=== PATIENT | female | born 1965 | race American Indian/Alaskan Native ===

== ENCOUNTER 2019-04-01 22:33 | Emergency (ER) | payer OTHER ==
[2019-04-02] MEDS ORDERED: ZESTRIL PO ONE (01:51)
--- NOTE | 2019-04-02 01:55 | Emergency Department Report ---
ED General Adult HPI - General Chief complaint: High BP Stated complaint: HIGH BLOOD PRESSURE Time Seen by Provider: 04/02/19 01:44 Source: patient Mode of arrival: Ambulatory Limitations: No Limitations - History of Present Illness Initial comments: 58-year-old female with history of hypertension presents to ED with elevated blood pressure the last few days. Patient states that she ran out of in her lisinopril 4 months ago. Currently she does not have a PCP, so was unable to get it refilled. Patient reports dull headache over the last few days, so she decided to take her blood pressure and found it to be elevated with systolic in the 160s and 170s. Patient denies dizziness, chest pain, shortness of breath, blurred vision. -: days(s) (3) Location: head Quality: dull Consistency: intermittent Improves with: none Worsens with: none Associated Symptoms: denies: confusion, chest pain, fever/chills, nausea/vomiting, shortness of breath - Related Data Previous Rx's Medication Instructions Recorded Last Taken Type Lisinopril [Zestril TAB] 20 mg PO ONCE #30 tablet 04/02/19 Unknown Rx Allergies Allergy/AdvReac Type Severity Reaction Status Date / Time No Known Allergies Allergy Verified 04/01/19 22:37 ED Review of Systems ROS: Stated complaint: HIGH BLOOD PRESSURE Other details as noted in HPI Comment: All other systems reviewed and negative Constitutional: denies: chills, fever Respiratory: denies: shortness of breath Cardiovascular: denies: chest pain Gastrointestinal: denies: nausea, vomiting Neurological: headache. denies: weakness, numbness, vertigo ED Past Medical Hx - Past Medical History Previous Medical History?: Yes Hx Hypertension: Yes - Surgical History Past Surgical History?: Yes Additional Surgical History: heart stent - Social History Smoking Status: Never Smoker Substance Use Type: None - Medications Home Medications: Home Medications Medication Instructions Recorded Confirmed Last Taken Type Lisinopril [Zestril TAB] 20 mg PO ONCE #30 tablet 04/02/19 Unknown Rx ED Physical Exam - General Limitations: No Limitations General appearance: alert, in no apparent distress - Head Head exam: Present: atraumatic, normocephalic - Eye Eye exam: Present: normal appearance, PERRL, EOMI - ENT ENT exam: Present: mucous membranes moist - Neck Neck exam: Present: normal inspection - Respiratory Respiratory exam: Present: normal lung sounds bilaterally. Absent: respiratory distress - Cardiovascular Cardiovascular Exam: Present: regular rate, normal rhythm - GI/Abdominal GI/Abdominal exam: Present: soft. Absent: distended - Extremities Exam Extremities exam: Present: normal inspection - Neurological Exam Neurological exam: Present: alert, oriented X3, CN II-XII intact. Absent: motor sensory deficit - Psychiatric Psychiatric exam: Present: normal affect, normal mood - Skin Skin exam: Present: warm, dry, intact, normal color ED Course Vital Signs 04/01/19 04/01/19 04/02/19 23:05 23:08 01:18 Temperature 98.0 F 98.1 F Pulse Rate 68 68 67 Respiratory 20 20 14 Rate Blood Pressure 175/92 175/92 O2 Sat by Pulse 99 99 Oximetry 04/02/19 04/02/19 04/02/19 01:30 01:45 02:00 Temperature Pulse Rate 54 L 60 56 L Respiratory 15 17 13 Rate Blood Pressure 160/89 160/89 154/92 O2 Sat by Pulse 100 100 99 Oximetry ED Medical Decision Making - Medical Decision Making - elevated BP, out of meds - mild HUGHES, however, neuro exam is normal - pt appears nontoxic - lisinopril given here in ED, prescription also given - advised outpt f/u - Differential Diagnosis chronic HTN Critical care attestation.: If time is entered above; I have spent that time in minutes in the direct care of this critically ill patient, excluding procedure time. ED Disposition Clinical Impression: Hypertension Disposition: DC-01 TO HOME OR SELFCARE Is pt being admited?: No Condition: Stable Instructions: Hypertension (ED) Prescriptions: Lisinopril [Zestril TAB] 20 mg PO ONCE #30 tablet Referrals: [facility] [Provider Group] - 3-5 Days [facility] [Outside] - 3-5 Days Forms: Work/School Release Form(ED) Time of Disposition: 01:56
[2019-04-02 02:18] VITALS: BP 154/92
== END 2019-04-02 02:20 | disposition home or self-care (01) ==
LOC: ED 22:33
DX: I10 Essential (primary) hypertension (principal); Z95.1 Presence of aortocoronary bypass graft; Z79.899 Other long term (current) drug therapy
CPT/HCPCS: 99282